=== PATIENT | female | born 1950 | race Caucasian/White ===

== ENCOUNTER → 2018-10-19 | Outpatient (CLI) | payer OTHER ==
[~2018-10-19] MED LIST: ADVAIR 250-501 EACH INH; ADVAIR HFA 230M12 GM INH; AMLODIPINE BESYL5 MG PO; AUGMENTIN 875-1 EACH PO; FENOFIBRATE134 MG PO; KEFLEX250 MG PO; LASIX 20 MG TAB20 MG PO; LISINOPRIL20 MG PO; MUCINEX600 MG PO; OMEPRAZOLE 20 M20 MG PO; POTASSIUM20 PO; PRAVASTATIN SOD40 MG PO; PREDNISONE 20 M20 M1 PO; PROAIR HFA8.5 GM INH; SPIRIVA INH; SPIRONOLACTONE25 M1 PO
== END ==
LOC: ULTRA 09-29 11:18
DX: Z88.8 Allergy status to other drugs, medicaments and biological substances (principal); K80.20 Calculus of gallbladder without cholecystitis without obstruction

== ENCOUNTER → 2018-12-01 | Outpatient (CLI) | payer OTHER | LOC: CAT 11-02 14:32 | PROVIDERS: Neuromusculoskeletal Medicine & OMM | DX: N28.1 Cyst of kidney, acquired (principal); K80.20 Calculus of gallbladder without cholecystitis without obstruction; I70.0 Atherosclerosis of aorta; K42.9 Umbilical hernia without obstruction or gangrene; M25.78 Osteophyte, vertebrae; J44.9 Chronic obstructive pulmonary disease, unspecified; Z79.2 Long term (current) use of antibiotics ==

== ENCOUNTER → 2019-07-14 | Outpatient (CLI) | payer OTHER | LOC: CAT 09:01 | DX: I71.4 Abdominal aortic aneurysm, without rupture (principal); R91.1 Solitary pulmonary nodule; J98.4 Other disorders of lung; J43.9 Emphysema, unspecified; I25.10 Atherosclerotic heart disease of native coronary artery without angina pectoris; Z95.0 Presence of cardiac pacemaker ==

== ENCOUNTER 2019-09-26 13:28 | Inpatient (IN) | payer OTHER ==
[~2019-09-26] VITALS: Ht 172.2 cm; Wt 129.7 kg
--- NOTE | ~2019-09-26 | EKG ---
[facility] [place] [address] ELECTROCARDIOGRAM REPORT Name: MARGARET ALLISON Room #: [facility]#: [id number] Admission: Attend Phys: Discharge: Date of : 46 Report #: [id number] THIS REPORT FOR: cc: Luis Clinton Steven F. 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
[2019-09-26 13:54] LABS: ABSOLUTE NEUTROPHILS 8.7 thou/uL (1.4-8.2); BASOPHILS 0.5 % (0.0-2.0); EOSINOPHILS 2.1 % (0.0-3.0); HEMATOCRIT 45.5 % (37.0-47.0); HEMOGLOBIN 14.7 gm/dL (12.0-15.0); LYMPHOCYTES 22.4 % (24.0-44.0); MCHC 32.3 g/dL (28.0-37.0); MCV 99.3 fL (80.0-100.0); MONOCYTES 5.5 % (1.0-8.0); PLATELET COUNT 243 thou/uL (150-400); POLYS 69.5 % (36.0-66.0); RBC 4.58 mil/uL (4.20-5.00); RDW 12.8 % (10.5-14.5); WBC 12.6 thou/uL (4.0-11.0)
[2019-09-26 13:59] LABS: BE(vivo) -0.7 mmol/L (-2 to +3); PO2 100.8 mmHg (80.0-100.0); sO2 95.9 % (92.0-98.0)
[2019-09-26 14:00] LABS: PCO2 80.1 mmHg (35.0-45.0); pH 7.192 (7.360-7.450)
[2019-09-26 14:04] LABS: CREATININE 1.1 mg/dL (0.6-1.0)
[2019-09-26 14:14] LABS: ALBUMIN 3.5 g/dL (3.4-5.0); DIRECT BILIRUBIN 0.2 mg/dL (<0.1-0.2); TOTAL BILIRUBIN 0.6 mg/dL (<0.1-1.0); TOTAL PROTEIN 7.1 g/dL (6.4-8.2); TROPONIN-I 0.1 ng/mL (<0.06)
[2019-09-26 15:39] LABS: BE(vivo) 0.2 mmol/L (-2 to +3); HCO3 28.3 mmol/L (22.0-26.0); PCO2 60.8 mmHg (35.0-45.0); PO2 82.1 mmHg (80.0-100.0); sO2 94.6 % (92.0-98.0)
[2019-09-26 15:40] LABS: pH 7.286 (7.360-7.450)
[2019-09-26 17:26] VITALS: BP 135/63
[2019-09-26 17:36] VITALS: BP 159/76
[2019-09-26 17:55] VITALS: BP 158/105
[2019-09-26 20:00] VITALS: BP 149/75
[2019-09-26 20:48] VITALS: BP 149/75
[2019-09-27 02:06] LABS: GLYCOHEMOGLOBIN (HGB A1C) 5.5 % (4.8-5.6)
[2019-09-27 02:11] LABS: ABSOLUTE NEUTROPHILS 10.4 thou/uL (1.4-8.2); BASOPHILS 0.3 % (0.0-2.0); HEMATOCRIT 42.2 % (37.0-47.0); HEMOGLOBIN 13.4 gm/dL (12.0-15.0); LYMPHOCYTES 4.7 % (24.0-44.0); MCH 31.3 pg (26.0-34.0); MCHC 31.8 g/dL (28.0-37.0); MCV 98.3 fL (80.0-100.0); MONOCYTES 0.5 % (1.0-8.0); PLATELET COUNT 176 thou/uL (150-400); POLYS 94.5 % (36.0-66.0)
[2019-09-27 02:30] LABS: CALCIUM 8.7 mg/dL (8.5-10.1); CREATININE 1.2 mg/dL (0.6-1.0); MAGNESIUM 1.3 mg/dL (1.8-2.4); POTASSIUM 3.8 mmol/L (3.5-5.1); TROPONIN-I 0.22 ng/mL (<0.06)
--- NOTE | 2019-09-27 05:01 | NUR ---
A/O X 4.REPOSITIONED Q2 HOURS AND NEEDED.VOIDS PER BEDPAN.ON BIPAP.ABLE TO EAT WHILE ON NASAL CANNULA PER PATIENT REQUEST THEN BACK TO BIPAP.BLOOD GLUCOSE 158 AT BEDTIME.PATIENT DIDN'T THINK SHE NEEDS SLIDING SCALE AND CLAIMED SHE'S NOT DIABETIC.SSI NOT GIVEN.PATIENT CHANGE HER MIND AND WANTS HER CODE STATUS BACK TO FULL CODE DUE TO UNABLE TO STOP CRYING WHEN SHE MADE THAT DECISION TO HERSELF.EXPLAINED TO PATIENT THAT THIS IS HER DECISION NOT HER 'S.ABLE TO SPEAK TO JOLENE MOREAU ABOUT THIS SITUATION.NO NEW ORDERS RECEIVED.TROPONIN ELEVATED.DENIES CHEST PAIN.CARDIOLOGY WAS CONSULTED.MANAGER STUDIO IS AWARE.MONITOR SHOWS V PACED RHYTHM.POC CONTINUED.
[2019-09-27 05:04] VITALS: BP 140/62
[2019-09-27 07:18] VITALS: BP 140/82
[2019-09-27 10:53] VITALS: BP 140/82
[2019-09-27 11:15] VITALS: BP 154/71
--- NOTE | 2019-09-27 15:09 | 2DMMODE ---
[address] [address] 2 D/M-MODE ECHOCARDIOGRAM Name: MARGARET ALLISON Room #: 209-P ADM IN M.R.#: [id number] Admission: 09/26/19 Attend Phys: Irene Nowak MD Discharge: Date of : 46 Report #: [id number] THIS REPORT FOR: cc: Luis Clinton,Omar Montero MD ~ THIS REPORT FOR: //name// APPROVED REPORT Study performed: 09/27/2019 13:40:00 EXAM: Comprehensive 2D, Doppler, and color-flow Echocardiogram Patient Location: Bedside Room #: 209 Status: routine BSA: 2.30 HR: 102 bpm BP: 154/71 mmHg Rhythm: Tachycardia Other Information Study Quality: Technically Limited Indications COPD Dyspnea Pacemaker Hypertension/HDD Echo Enhancing Agent Indication: Endocardial border delineation Agent(s) / Amount(s) Used: Optison 3 cc 2D Dimensions LVOT Diam: 20.97 (18-24mm) IVC: 19.00 mm Aortic Valve AoV Peak Hardy.: 1.59 m/s AO Peak Gr.: 10.14 mmHg LVOT Max P.13 mmHg LVOT Max V: 1.33 m/s TAMIE Vmax: 2.[address] [address] 2 D/M-MODE ECHOCARDIOGRAM Name: MARGARET ALLISON Room #: 209-P ADM IN M.R.#: [id number] Admission: 09/26/19 Attend Phys: Lili Alanis Discharge: Date of : 46 Report #: [id number] Pulmonary Valve PV Peak Hardy.: 1.32 m/s PV Peak Gr.: 7.09 mmHg Tricuspid Valve TR Peak Hardy.: 3.02 m/s TR Peak Gr.: 36.40 mmHg PA Pressure: 41.00 mmHg Left Ventricle The left ventricle is normal size. There is multiple wall motion abnormalities consisting of hypokinesis in the apical inferior wall. There is normal left ventricular wall thickness. Left ventricular systolic function is borderline. LVEF is 50%. This study is not technically sufficient to allow evaluation of the LV diastolic function. Right Ventricle The right ventricle is normal size. The right ventricular systolic function is normal. Pacemaker lead is present in the right ventricle. Atria Left atrium is dilated. Right atrium is dilated. Pacemaker lead is present in the right atrium. Aortic Valve The aortic valve is normal in structure. The Aortic valve is sclerotic. Trace to mild aortic regurgitation. There is no aortic valvular stenosis. Mitral Valve The mitral valve is normal in structure. There is no mitral valve regurgitation noted. No evidence of mitral valve stenosis. Tricuspid Valve The tricuspid valve is normal in structure. There is mild tricuspid regurgitation. Estimated PAP 41 mmHg. There is moderate pulmonary hypertension. Pulmonic Valve The pulmonary valve is normal in structure. There is no pulmonic valvular regurgitation. Great Vessels The aortic root is normal in size. IVC is normal in size and collapses >50% with inspiration. [facility] [address] [place] [address] 2 D/M-MODE ECHOCARDIOGRAM Name: MARGARET ALLISON Room #: 209-P ADM IN M.R.#: [id number] Admission: 09/26/19 Attend Phys: Lili Alanis Discharge: Date of : 46 Report #: [id number] Pericardium There is no pericardial effusion. <Conclusion> The left ventricle is normal size. There is multiple wall motion abnormalities consisting of hypokinesis in the apical inferior wall. LVEF is 50%. The right ventricular systolic function is normal. Pacemaker lead is present in the right ventricle. Left atrium is dilated. Right atrium is dilated. Pacemaker lead is present in the right atrium. The aortic valve is normal in structure. The Aortic valve is sclerotic. Trace to mild aortic regurgitation. The mitral valve is normal in structure. The tricuspid valve is normal in structure. There is mild tricuspid regurgitation. Estimated PAP 41 mmHg. There is moderate pulmonary hypertension. The pulmonary valve is normal in structure. There is no pericardial effusion. <ELECTRONICALLY SIGNED> By: Omar Avendano MD 09/27/19 1508 [id number] 1508 Omar Avendano MD /INF
[2019-09-27 16:27] VITALS: BP 147/64
--- NOTE | 2019-09-27 18:14 | NUR ---
ASSUMED CARE PT SHIFT CHANGE. ASSESSMENTS CHARTED.MEDS GIVEN PER MAR. PT ALERT AND ORIENTED. VSS. DENIES PAIN. O2 SATS WNL ON 4L O2. DENIES SOB. PT UP WITH PT AND OT TOLERATING WELL THIS SHIFT. PT DIURESING APPROPRIATELY. UP X1 WITH WALKER. APPETITE ADEQUATE. ECHO COMPLETED PER ORDERS--SEE RESULTS. PT CURRENTLY RESTING IN CHAIR DENYING OF NEEDS. CONTINUING TO MONITOR.
[2019-09-27 20:19] VITALS: BP 156/90
--- NOTE | 2019-09-28 03:30 | NUR ---
ASSESSMENT: PT REMAIN ALERT AND ORIENT TIMES THREE. VSS, V-PACED PER MONITOR. PT C/O FEELING ITCHY AROUND BLAYNE ANKLES, SHINS AND UPPER BLAYNE ARMS. IT WAS NOTED THAT PT'S SKIN WAS SLIGHTLY RED IN TO AREAS. THERE WERE NO BUMPS, OPEN AREAS NOR BORDERED APPEARANCES NOTED. PT STATE THAT THIS JUST HAPPENED ALL OF A SUDDEN AFTER TASTING A FROZEN ORANGE ICE MELT THAT A TECH HAD BROUGHT HER. SHE FELT THAT AFTER THIS RN APPLIED HER MINERAL OIL OINTMENT TO HER LEGS/ARMS THAT THOSE AREAS FELT MUCH BETTER. THE AREAS DID APPEAR LESS RED. PT STATE THAT HE ANKLES WERE THE WORST (ITCHING) AND AFTER THE CREAM THEY FELT "GOOD". HER SOCKS WERE LEFT OF TEMPORARILY. PT'S CONTINOUS PULSE OX CONTINUOUSLY TO ALARM, IT WAS DISCOVERED BY RT THAT THE OXYGEN TUBING HAD COME DISCONNECTED FROM THE WALL, LATER THE PT DISCONNECTED THE FINGER PROBE FROM THE "CLAMP" SECTION. PT GOT DISAPPOINTED WITH THIS RN AFTER BEING GIVEN THE OTHER END TO RECONNECT. PT STATE, "IS THIS SELF-SERVICE OR WHAT". IT WAS EXPLAINED THAT I WAS SIMPLY SHOWING HER HOW TO RECONNECT PULSE OX. PT BECAME MORE DISAPPOINTED STATING "WELL ISN'T THAT YOUR JOB TO DO, AREN'T YOU GETTING PAID TO DO THAT?". THIS RN APPLOGIZED, STATING, "I'M SORRY". PT REPLIED, "I KNOW THAT YOU ARE", I'M JUST GOING TO TALK TO MY DR.". AT THIS POINT THIS RN COULD SEE THAT THE PT WAS JUST BEING RUDE. PT REFUSED BIPAP TONIGHT, DID KEEP 4 LITERS NC ON. SLOW PROGRESS, WILL CONTINUE TO MONITOR,
[2019-09-28 04:27] LABS: CALCIUM 8.9 mg/dL (8.5-10.1)
[2019-09-28 05:04] VITALS: BP 172/89
[2019-09-28 07:21] VITALS: BP 169/92
[2019-09-28 11:20] VITALS: BP 154/67
[2019-09-28 16:29] VITALS: BP 152/79
--- NOTE | 2019-09-28 17:06 | NUR ---
ASSUMED CARE AT 0700, SHIFT ASSESMENT DONE, MEDS GIVEN, VSS. DENIES PAIN, NAUSEA, VOMITING. ON 4LNC, TOLEARTING WELL. VPACED ON THE MONITOR, WAS VERY TIRED THIS AM. WAS NOT ABLE TO GET UP, HAS A EXTERNAL CATHETER IN PLACE, WORKING WELL. WILL CONTINUE TO ASSESS AND ASSIST WITH ADLs NEEDED.
[2019-09-28 21:15] VITALS: BP 185/98
--- NOTE | 2019-09-28 22:55 | NUR ---
ASSESSMENT: PT REMAIN ALERT AND ORIENT TIMES THREE, FORGETFUL AT TIMES. APPLIED LOTION TO BACK PER REQUEST. ON BIPAP AT 2300. DENIES PAIN. DOES GET SOB WITH EXERTION. SAT ON THE SIDE OF THE BED AND STOOD ON THE SIDE OF BED. PT C/O THAT NO ONE HAS COME AROUND TO WALK HER. ACCORDING TO THE OFF GOING RN, PT REFUSED TO GET OOB. POC FOLLOWED, ASSIST WITH ADLS. [id number] BIPAP FOR 2 HRS, SLOW PROGRESS TOWARDS DC GOALS, WILL CONTINUE TO MONITOR.
[2019-09-29 05:02] LABS: CALCIUM 8.9 mg/dL (8.5-10.1); POTASSIUM 4.5 mmol/L (3.5-5.1)
[2019-09-29 08:00] VITALS: BP 170/94
[2019-09-29 12:00] VITALS: BP 135/67
--- NOTE | 2019-09-29 12:11 | HC ---
[facility] [place] [address] CONSULTATION Name: MARGARET ALLISON Room #: 209-P [facility] IN M.R.#: [id number] Admission: 09/26/19 Attend Phys: Irene Nowak MD Discharge: Date of : 46 Report #: [id number] THIS REPORT FOR: cc: Luis Clinton Steven F. DO Dorris, Mitchell F. DPM ~ THIS REPORT FOR: //name// CC: Irene Clinton MD DATE OF SERVICE: 09/27/2019 INTRODUCTION: The patient is a 69-year-old female who has been admitted to [facility] with hypoxia and respiratory distress secondary to chronic COPD. The patient is stable and making good progress has been noted during her period of care that she has a severe dystrophy of her toenails and is in need of general foot care. She claims to not have had nail care in the past year. She denies diabetes; however, indicates that she is on insulin for a steroid-induced hyperglycemia. She denies complications with her feet due to her obesity, is unable to care for her feet at this time. Remainder of her past medical history with regard to this consultation is unremarkable. Pedal exam reveals dorsalis pedis and posterior tibial pulses graded at 1/4. Capillary refill time is within normal limits. Neurologically, the patient is grossly intact to all sensory stimulus including sharp, dull, proprioceptive and vibratory sensations. 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 There are no acute findings; however, with regard to her skin exam, she has been receiving some lotion for her skin. Her nails are severely elongated, thickened, show clinical evidence of onychodystrophy, presumably associated with onychomycosis and her underlying vascular condition. Her nails were debrided. There is no additional underlying pathology noted at the time of treatment. IMPRESSION: 1. Onychodystrophy associated with onychomycosis. 2. Hyperkeratosis. PLAN: The patient's nails were debrided as mentioned before. No additional treatment was required. I have suggested the regular use of moisturizer and [address] [place] [address] CONSULTATION Name: ALLISONMARGARET L Room #: 209-P [facility] IN ..#: [id number] Admission: 09/26/19 Attend Phys: Irene Nowak MD Discharge: Date of : 46 Report #: [id number] monitoring for skin breakdown. I will be pleased to follow up with this patient upon request and I have left her my card for outpatient followup as needed. <ELECTRONICALLY SIGNED> By: Zak Fang DPM 09/29/19 1211 [id number] [id number] Zak Fang DPM /zully
[2019-09-29 16:00] VITALS: BP 127/69
[2019-09-29 19:31] VITALS: BP 160/82
--- NOTE | 2019-09-29 22:48 | NUR ---
ASSUMED CARE PT SHIFT CHANGE, AND AGAIN AT APPROX 191. PT ALERT AND ORIENTED. VSS. DENIES PAIN. O2 SATS WNL ON ROOM AIR. PT UP X1 WITH WALKER TOLERATING WELL. PT HAD BM THIS SHIFT, URINE OUTPUT ADEQUATE. EXTERNAL CATHETER REMOVED PT ABLE TO AMBULATE BETTER. DENYING OF NEEDS AT THIS TIME. WILL PASS ON REPORT TO NURSE.
[2019-09-30 03:53] VITALS: BP 144/73
--- NOTE | 2019-09-30 04:33 | NUR ---
ASSUMED PT CARE AT 2300. REPORT TAKEN FROM AM NURSE. PT IS ALERT AND ORIENTED WITH NO SIGN OF DISTRESS NOTED IN PT. PT IS STABLE THROUGHOUT THE NIGHT. PT IS ON O2. DENIES ANY PAIN. FALL PRECAUTION IN PLACE. DENIES ANY FURTHER NEEDS AT THIS TIME.
[2019-09-30 05:28] LABS: CALCIUM 8.7 mg/dL (8.5-10.1); CREATININE 1.1 mg/dL (0.6-1.0); POTASSIUM 4.1 mmol/L (3.5-5.1)
[2019-09-30 07:08] VITALS: BP 153/83
[2019-09-30] MEDS ORDERED: CLOTRIMAZOLE 1%15 G1 TOP (08:00)
[2019-09-30] MEDS ORDERED: BANOPHEN25 M1 PO (08:00)
[2019-09-30] MEDS ORDERED: LASIX 20 MG TAB20 MG PO (08:09)
[2019-09-30] MEDS ORDERED: ALDACTONE50 MG PO (08:09)
[2019-09-30] MEDS ORDERED: PREDNISONE 20 M20 MG PO (08:09)
[2019-09-30 11:24] VITALS: BP 119/54
[2019-09-30 14:54] VITALS: BP 119/54
[2019-09-30 15:09] VITALS: BP 119/54
--- NOTE | 2019-09-30 15:26 | NUR ---
Stunt Performer visited with the pt at bedside this afternoon. She is anticipating dc to home later today. Her spouse will pick her up. She has home o2 per darrell and a rwalker if needed. She reports living in a multi level home home with six steps in and up to each level. Therapy worked with her today and is recommending that she use her rwalker at all times. She would like to see if she could qualify for a home o2 system with a shoulder pack as the E tanks make it hard to use the walker and be indep. Darrell appiah contacted and he will call her at home next week to setup a home assessment for a different system. Hh referral discussed and she reports having [facility] in the past. She would like to use them if they can accept. She does not feel she needs OT, just RN and PT. Referral and orders faxed to intake and they can see her Thursday. Care team updated. No other needs noted.
--- NOTE | 2019-09-30 16:10 | NUR ---
ASSSUMMED PT CARE AT APPROXIMATELY 0700. PT A&O X4. ASSESSMENT CHARTED. FALL PRECAUTIONS IN PLACE. PT DENIES HAVING CHEST PAIN. PT DENIES HAVING SOB. PT DENIES HAVING ACUTE PAIN. VITAL SIGNS STABLE. BLOOD SUGARS STABLE. PT DISCHARGING HOME C HOME HEALTH. NOTIFIED OF PT'S RASH BECOMING WORSE. DR. HO CONSULTED DERMATOLGIST. PT CURRENTLY AT DR. VINSON. WILL BE COMING BACK TO UNIT TO BE PICKED UP BY . SOCIAL WORK SET UP PORTABLE OXYGEN THAT THE PT CAN GO HOME WITH. PT RECIEVED DISCHARGE EDUCATION. PT STATED UNDERSTANDING AND DENIED HAVING FURTHER QUESTIONS. IV DC. TELE DC.
--- NOTE | 2019-09-30 16:46 | NUR ---
if patient to dc over weekend call [phone] [facility] care. Alert of discharge and fax orders to [phone]
== END 2019-09-30 17:26 | disposition home health service (06) | DRG 871 ==
LOC: ER 13:28 → EROBS 16:18 → 2N 16:18
PROVIDERS: Emergency Medicine; Internal Medicine; Internal Medicine Pulmonary Disease; Nurse Practitioner; ADMIT Hospitalist
PROC: 5A09357 Assistance with Respiratory Ventilation, Less than 24 Consecutive Hours, Continuous Positive Airway Pressure (ICD-10-PCS; principal; 2019-09-26)
PROC: 5A09357 Assistance with Respiratory Ventilation, Less than 24 Consecutive Hours, Continuous Positive Airway Pressure (ICD-10-PCS; 2019-09-27)
PROC: 5A09357 Assistance with Respiratory Ventilation, Less than 24 Consecutive Hours, Continuous Positive Airway Pressure (ICD-10-PCS; 2019-09-28)
PROC: 5A09357 Assistance with Respiratory Ventilation, Less than 24 Consecutive Hours, Continuous Positive Airway Pressure (ICD-10-PCS; 2019-09-29)
PROC: 5A09357 Assistance with Respiratory Ventilation, Less than 24 Consecutive Hours, Continuous Positive Airway Pressure (ICD-10-PCS; 2019-09-30)
PROC: 4B02XSZ Measurement of Cardiac Pacemaker, External Approach (ICD-10-PCS; 2019-09-30)
DX: A41.9 Sepsis, unspecified organism (principal); J96.21 Acute and chronic respiratory failure with hypoxia; J96.22 Acute and chronic respiratory failure with hypercapnia; I50.33 Acute on chronic diastolic (congestive) heart failure; J44.1 Chronic obstructive pulmonary disease with (acute) exacerbation; N17.9 Acute kidney failure, unspecified; Z68.41 Body mass index [BMI] 40.0-44.9, adult; G47.33 Obstructive sleep apnea (adult) (pediatric); J44.9 Chronic obstructive pulmonary disease, unspecified; E78.5 Hyperlipidemia, unspecified; L60.3 Nail dystrophy; B35.1 Tinea unguium; L85.9 Epidermal thickening, unspecified; Z66 Do not resuscitate; I87.8 Other specified disorders of veins; I45.9 Conduction disorder, unspecified; I71.2 Thoracic aortic aneurysm, without rupture; E66.9 Obesity, unspecified; G47.00 Insomnia, unspecified; K59.00 Constipation, unspecified; R91.1 Solitary pulmonary nodule; Z87.891 Personal history of nicotine dependence; Z71.6 Tobacco abuse counseling; Z99.81 Dependence on supplemental oxygen
CPT/HCPCS: 10081

== ENCOUNTER 2020-07-05 23:12 | Inpatient (IN) | payer OTHER ==
[~2020-07-05] VITALS: Ht 172.7 cm; Wt 132.9 kg
[~2020-07-05 23:12] MED LIST changes: +ALDACTONE50 MG PO; +BANOPHEN25 M1 PO; +CLOTRIMAZOLE 1%15 G1 TOP; +PREDNISONE 20 M20 MG PO
[2020-07-05 23:14] VITALS: BP 162/96
[2020-07-06] MEDS ORDERED: PENTOXIFYLLINE400 MG PO (00:34)
[2020-07-06 00:38] LABS: BASOPHILS 0.2 % (0.0-2.0); HEMATOCRIT 39.6 % (37.0-47.0); HEMOGLOBIN 13.2 gm/dL (12.0-15.0); LYMPHOCYTES 17.4 % (24.0-44.0); MCH 32.8 pg (26.0-34.0); MCHC 33.4 g/dL (28.0-37.0); MCV 98.1 fL (80.0-100.0); MONOCYTES 7.7 % (1.0-8.0); PLATELET COUNT 232 thou/uL (150-400); POLYS 71.7 % (36.0-66.0); RBC 4.04 mil/uL (4.20-5.00); RDW 13.2 % (10.5-14.5); WBC 9.8 thou/uL (4.0-11.0)
[2020-07-06 00:41] LABS: POTASSIUM 3.5 mmol/L (3.5-5.1)
[2020-07-06 00:49] LABS: TROPONIN-I 0.09 ng/mL (<0.06)
--- NOTE | 2020-07-06 08:24 | EKG ---
[facility] [place] [address] ELECTROCARDIOGRAM REPORT Name: MARGARET ALLISON Room #: 170-9 ADM IN M.R.#: [id number] Admission: 07/06/20 Attend Phys: Tasha Marquez MD Discharge: Date of : 46 Report #: [id number] THIS REPORT FOR: cc: Luis Clinton Steven F. DO Santiago, Patrick MD [facility] ~ THIS REPORT FOR: //name// [facility] ED Test Date: 2020-07-06 Test Time: 00:07:21 Pat Name: MARGARET ALLISON Department: Room: 170 Gender: F Support Architect: CATARINO : 1950 Requested By: Gabirel Montelongo Order Number: [id number] MD: Seferino Eastman Measurements Intervals [place] Rate: 84 P: 107 VT: 173 QRS: -65 QRSD: 157 T: 111 QT: 445 QTc: 527 Interpretive Statements Atrial-sensed ventricular-paced rhythm No further analysis attempted due to paced rhythm Baseline wander in lead(s) V1 Compared to ECG 09/26/2019 13:35:19 No significant changes Electronically Signed On 07-06-2020 8:24:24 DIRECTOR OF ENROLLMENT by Seferino Eastman [email or web address] <ELECTRONICALLY SIGNED> By: Seferino Eastman MD, FACC 07/06/20 0824 Seferino Eastman MD, FACC /EPI
[2020-07-06 12:02] VITALS: BP 164/69
--- NOTE | 2020-07-06 12:38 | NUR ---
Assumed care at 1140, pt A&O x4, VSS, provided meal, call light within reach.
--- NOTE | 2020-07-06 15:01 | NUR ---
Patient transported to CCU, call button within reach. Bedside report given to BROWN Heard.
[2020-07-06 15:20] VITALS: BP 154/97
--- NOTE | 2020-07-06 18:42 | NUR ---
PT. ARRIVED AT FLOOR CLOSE TO 1500; AOX4; NO C/O PAIN; C/O SOB; ON 2L; ADMISSION PERFORMED; HOME MEDICATIONS UPDATED; EDUCATED ABOUT FALL PRECAUTIONS; ST. UNDERSTANDING; VPACED ON THE MONITOR; VS WNL; MONITORING O2 SAT; ASSESSMENT CHARGED; FOLLOWING POC; WILL PASS ON REPORT;
[2020-07-06 19:32] VITALS: BP 172/75
--- NOTE | 2020-07-07 03:21 | NUR ---
PT IS ALERT AND ORIENTED X4. LUNG ARE CLEAR TO DIMINISHED. ON 3 LITERS NASAL CANULA. UP TO BATHROOM WITH ASSIST X1. V-PACED ON THE CARDIAC MONIOR. ACCUCHECK NEEDED COVEREAGE DUE TO STEROIDS AT THIS TIME. LEGS ARE SWOLLEN BILATERAL. BREATHING TREATMENTS PER RESPIRATORY AT THIS TIME. WILL CONTINUE TO ASSESS AND MONITOR PER NURSING. DENIES ANY PAIN ISSUES AT THIS TIME.
[2020-07-07 03:57] VITALS: BP 132/55
[2020-07-07 04:28] LABS: HEMATOCRIT 39.6 % (37.0-47.0); MCH 32.3 pg (26.0-34.0); MCHC 32.9 g/dL (28.0-37.0); MCV 98.3 fL (80.0-100.0); RBC 4.03 mil/uL (4.20-5.00); RDW 13.1 % (10.5-14.5); WBC 11.7 thou/uL (4.0-11.0)
[2020-07-07 04:41] LABS: CALCIUM 9.1 mg/dL (8.5-10.1); MAGNESIUM 1.5 mg/dL (1.8-2.4); POTASSIUM 4.1 mmol/L (3.5-5.1)
[2020-07-07 07:44] VITALS: BP 146/66
[2020-07-07 12:11] VITALS: BP 129/52
[2020-07-07 16:38] VITALS: BP 117/54
--- NOTE | 2020-07-07 18:51 | NUR ---
RECEIVED PT'S CARE AROUND 07; PT. ON BED; ALERT; DURING AM ASSESSMENT AOX4; NO C/O PAIN; C/O ITCHING OVER BODY; CARD; PHYSICIAN NOTIFIED DURING ROUNDING; ORDERS RECEIVED; PRN BENADRYL GIVEN; HOLD AM ANTIBIOTIC; RE-ASSESSMENT PT. ST. DECREASE ITCHING; ST. URGENCY AND INCONTINECE AFTER PO DIURETICS; PULL UP PROVIDED; BED SIDE COMMODE CLOSE TO CHAIR; EDUCATED ABOUT FALL PRECAUTIONS; ST. UNDERSTANDING; WORKED WITH PT AND OT; OK FOR PT. TO AMBULATE WITHOUT ASSISTANCE; DR. SOUSA PUT CONSULT FOR NEURO AND I&D; PAGED & CLARIFY; ORDERS RECEIVED; CONSULT CANCEL; WRONG ENTRY; CONSULTS NOTIFIED; INSULIN GIVEN THIS PM; VPACED ON THE MONITOR; ASSESSMENT CHARGED; FOLLOWING POC; WILL PASS ON REPORT;
[2020-07-07 20:05] VITALS: BP 131/52
[2020-07-08] VITALS: BP 134/55
[2020-07-08 02:26] VITALS: BP 134/55
[2020-07-08 03:32] VITALS: BP 135/68
[2020-07-08 05:46] LABS: CALCIUM 9.6 mg/dL (8.5-10.1); CREATININE 1.2 mg/dL (0.6-1.0); POTASSIUM 3.6 mmol/L (3.5-5.1)
[2020-07-08 06:09] LABS: HEMATOCRIT 39.3 % (37.0-47.0); HEMOGLOBIN 12.9 gm/dL (12.0-15.0); MCH 32.4 pg (26.0-34.0); MCHC 32.8 g/dL (28.0-37.0); MCV 98.9 fL (80.0-100.0); RBC 3.98 mil/uL (4.20-5.00); RDW 13.3 % (10.5-14.5); WBC 14.7 thou/uL (4.0-11.0)
--- NOTE | 2020-07-08 06:14 | NUR ---
assumed pt at the chnage of shift, pt is awake, alert and oriented, vpaced on the monitor, assessments as charted, up to the chair during assessments, meds given as per mar, remains on 2l of oxygen via nasal canula, o2 sats stable, no concerns at this time, progressing well towards plan of care, will pass on report
[2020-07-08 07:10] VITALS: BP 141/66
[2020-07-08] MEDS ORDERED: KEFLEX500 M1 PO (09:02)
[2020-07-08] MEDS ORDERED: PREDNISONE 5 MG5 M1 PO (09:04)
[2020-07-08 09:45] VITALS: BP 141/66
--- NOTE | 2020-07-08 10:30 | NUR ---
ASSUMED CARE AT SHIFT CHANGE, ALERT AND ORIENTED X4 AND VSS. DISCHARGE AND MEDICATIONS INTRUCTIONS GIVEN TO PATIENT.
[2020-07-08 11:30] VITALS: BP 147/77
== END 2020-07-08 10:45 | disposition home or self-care (01) | DRG 291 ==
LOC: ER 23:12 → EROBS 07-06 02:32 → 2N 07-06 15:16
PROVIDERS: Emergency Medicine; Nurse Practitioner Family; ADMIT Internal Medicine; ATTEND Internal Medicine
PROC: 5A09357 Assistance with Respiratory Ventilation, Less than 24 Consecutive Hours, Continuous Positive Airway Pressure (ICD-10-PCS; principal; 2020-07-06)
DX: I11.0 Hypertensive heart disease with heart failure (principal); J96.21 Acute and chronic respiratory failure with hypoxia; J44.1 Chronic obstructive pulmonary disease with (acute) exacerbation; I50.33 Acute on chronic diastolic (congestive) heart failure; G47.33 Obstructive sleep apnea (adult) (pediatric); K21.9 Gastro-esophageal reflux disease without esophagitis; E78.5 Hyperlipidemia, unspecified; Z20.828 Contact with and (suspected) exposure to other viral communicable diseases; Z95.0 Presence of cardiac pacemaker; Z79.899 Other long term (current) drug therapy; Z87.891 Personal history of nicotine dependence; Z98.42 Cataract extraction status, left eye; Z98.41 Cataract extraction status, right eye; Z23 Encounter for immunization
CPT/HCPCS: 10081